=== PATIENT | female | born 1985 | race Caucasian/White ===

== ENCOUNTER 2018-02-07 00:07 | Emergency (ER) | payer OTHER ==
[~2018-02-07] VITALS: Ht 152.4 cm; Wt 48.6 kg
[2018-02-07 00:27] VITALS: BP 139/90
[2018-02-07] MEDS ORDERED: AMOX TR/POT CLAV 875 MG/125 MG TABLET PO ONE (00:45)
== END 2018-02-07 00:47 | disposition home or self-care (01) ==
LOC: EMS 00:08
DX: L08.9 Local infection of the skin and subcutaneous tissue, unspecified (principal)
CPT/HCPCS: 99283

== ENCOUNTER 2020-10-04 09:01 | Emergency (ER) | payer OTHER ==
[~2020-10-04] VITALS: Ht 149.9 cm; Wt 54.5 kg
[2020-10-04 09:30] VITALS: BP 119/72
== END 2020-10-04 09:49 | disposition home or self-care (01) ==
LOC: EMS 09:05
DX: S46.811A Strain of other muscles, fascia and tendons at shoulder and upper arm level, right arm, initial encounter (principal); X58.XXXA Exposure to other specified factors, initial encounter; Y93.89 Activity, other specified; Y92.89 Other specified places as the place of occurrence of the external cause; Y99.8 Other external cause status
CPT/HCPCS: 99282; Z7502

== ENCOUNTER 2022-01-15 09:16 | Emergency (ER) | payer OTHER ==
[~2022-01-15] VITALS: Ht 152.4 cm; Wt 57.7 kg
[2022-01-15 09:42] LABS: COVID AG,FIA SOURCE NASAL SWAB
[2022-01-15 10:20] LABS: INFLUENZA TYPE A NEGATIVE FOR TYPE A (NEGATIVE); INFLUENZA TYPE B NEGATIVE FOR TYPE B (NEGATIVE)
[2022-01-15 10:22] LABS: RAPID GROUP A STREP POSITIVE (NEGATIVE)
[2022-01-15] MEDS ORDERED: PENICILLIN V POTASSIUM 500 MG TABLET PO ONE (13:00)
[2022-01-15] MEDS ORDERED: DEXAMETHASONE 4 MG TABLET PO ONE (13:00)
[2022-01-15] MEDS ORDERED: SODIUM CHLORIDE 0.9% 1,000 ML IV ONE (13:30)
[2022-01-15] MEDS ORDERED: PENI500T2 PO (13:40)
[2022-01-15 14:52] VITALS: BP 129/72
== END 2022-01-15 15:33 | disposition home or self-care (01) ==
LOC: EMS 09:19
DX: J02.0 Streptococcal pharyngitis (principal); F41.9 Anxiety disorder, unspecified; Z20.822 Contact with and (suspected) exposure to COVID-19
CPT/HCPCS: 99283; 96360; 87426; 87430; 87804; J8540

== ENCOUNTER 2023-03-14 09:10 | Emergency (ER) | payer OTHER ==
[~2023-03-14] VITALS: Ht 154.9 cm; Wt 57.7 kg
[~2023-03-14 09:10] MED LIST: PENI500T2 PO
[2023-03-14 09:15] VITALS: BP 116/93; PULSE 128; RESP 16; TEMP 99.4
[2023-03-14 09:36] LABS: COVID AG,FIA SOURCE NASAL SWAB
[2023-03-14 09:51] LABS: RAPID GROUP A STREP NEGATIVE (NEGATIVE)
[2023-03-14 09:58] LABS: SARS-COV2 (COVID) ANTIGEN,FIA Negative (Negative)
[2023-03-14 09:59] LABS: INFLUENZA TYPE A NEGATIVE FOR TYPE A (NEGATIVE); INFLUENZA TYPE B NEGATIVE FOR TYPE B (NEGATIVE)
[2023-03-14] MEDS ORDERED: LIDOCAINE 2% VISCOUS 15 ML SOLUTION UDCUP PO ONE (10:00)
[2023-03-14] MEDS ORDERED: DEXAMETHASONE SOD PHOS 4 MG/ML VIAL IM ONE (10:00)
[2023-03-14] MEDS ORDERED: CEPHALEXIN MONOHYDRATE 500 MG CAPSULE PO ONE (10:00)
[2023-03-14] MEDS ORDERED: IBUPROFEN 600 MG TABLET PO ONE (10:00)
[2023-03-14] MEDS ORDERED: CEPH-558 PO (10:35)
[2023-03-14] MEDS ORDERED: ACET-2080 PO (10:35)
[2023-03-14] MEDS ORDERED: IBUP-1554 PO (10:39)
== END 2023-03-14 11:23 | disposition home or self-care (01) ==
LOC: EMS 09:13
DX: J02.9 Acute pharyngitis, unspecified (principal); H92.03 Otalgia, bilateral; F41.9 Anxiety disorder, unspecified; Z20.822 Contact with and (suspected) exposure to COVID-19
CPT/HCPCS: 99284; 87426; 87430; 87804; 96372; J1100